=== PATIENT | male | born 1995 | race Caucasian/White ===

== ENCOUNTER 2018-01-02 14:54 | Emergency (ER) | payer SELFPAY ==
--- NOTE | 2018-01-02 14:58 | PDOC ---
Rapid Medical Evaluation Time Seen by Provider: 01/02/18 14:55 Medical Evaluation: 01/02/18 14:55 I have performed a brief in-person evaluation of this patient. The patient presents with a chief complaint of: left shoulder pain after fall down stairs one month ago. Pertinent physical exam findings:FROM with pain , nv intact I have ordered the following:xray left shoulder, clavicle The patient will proceed to the ED for further evaluation.
[2018-01-02 14:59] VITALS: BP 117/71; PULSE 73; TEMP 98.7; BMI 22.1
--- NOTE | 2018-01-02 15:32 | PDOC ---
History of Present Illness - General Chief Complaint: Injury Stated Complaint: LT SHOULDER PAIN Time Seen by Provider: 01/02/18 14:55 - History of Present Illness Initial Comments: 01/02/18 15:29 22-year-old fully immunized male without comorbidities presents for evaluation of one month of left shoulder pain. He states he fell down some steps landing on the back of the shoulder about a month ago since that time is been having pain at the posterior aspect of the left shoulder. He has no systemic symptoms. Past History - Past Medical History Allergies/Adverse Reactions: Allergies Allergy/AdvReac Type Severity Reaction Status Date / Time No Known Allergies Allergy Verified 01/02/18 14:59 Home Medications: Ambulatory Orders NK [No Known Home Medication] 01/02/18 COPD: No DVT: No Dementia: No - Suicide/Smoking/Psychosocial Hx Smoking History: Never smoked Information on smoking cessation initiated: No Hx Alcohol Use: No Drug/Substance Use Hx: No Substance Use Type: None Review of Systems - Review of Systems Musculoskeletal: Yes: See HPI, Joint Pain All Other Systems: Reviewed and Negative *Physical Exam - Vital Signs Last Vital Signs Temp Pulse Resp BP Pulse Ox 98.7 F 73 18 117/71 100 01/02/18 14:57 01/02/18 14:57 01/02/18 14:57 01/02/18 14:57 01/02/18 14:57 - Physical Exam Comments: Left shoulder skin color and temperature are normal. He has decreased active range of motion no pain with passive range of motion external and internal rotation. He is unable to tolerate rotator cuff strength testing or impingement maneuvers. His upper extremity compartments are soft and nontender he has no gross sensorimotor deficits. Negative Spurling maneuver. He has tenderness about the posterior aspect of the shoulder into the soft tissue in the subacromial area 01/02/18 15:29 Medical Decision Making - Medical Decision Making X-ray show speckle soft tissue calcifications in the left shoulder. I am uncertain of the etiology. I will have her follow-up with orthopedic surgery 01/02/18 15:30 *DC/Admit/Observation/Transfer Diagnosis at time of Disposition: Shoulder contusion - Discharge Dispostion Disposition: HOME Condition at time of disposition: Stable Decision to Admit order: No - Referrals Referrals: Malik Noonan MD [Staff Physician] - - Patient Instructions Printed Discharge Instructions: Contusion Additional Instructions: Return to the emergency room should symptoms worsen or go unresolved. Your x- rays not normal and requires further imaging studies such as an MRI or possibly a CAT scan. Please follow-up with orthopedic surgery for further evaluation and treatment options. It's very important that he follow-up with orthopedic surgery in 1-2 days. He may take Tylenol and Motrin as directed for pain. - Post Discharge Activity
== END 2018-01-02 15:44 | disposition home or self-care (01) ==
LOC: JERFT 14:54
DX: S40.012A Contusion of left shoulder, initial encounter (principal); W10.9XXA Fall (on) (from) unspecified stairs and steps, initial encounter; Y93.89 Activity, other specified; Y92.9 Unspecified place or not applicable
CPT/HCPCS: 73000-TC-LT-FY; 73030-TC-LT-FY; 99281-25

== ENCOUNTER 2018-03-06 13:55 | Emergency (ER) | payer OTHER ==
[2018-03-06 14:17] VITALS: BP 117/70; PULSE 59; TEMP 98.7; BMI 21.7
--- NOTE | 2018-03-06 14:17 | PDOC ---
Rapid Medical Evaluation Chief Complaint: Pain Time Seen by Provider: 03/06/18 14:14 Medical Evaluation: Allergies Allergy/AdvReac Type Severity Reaction Status Date / Time No Known Allergies Allergy Verified 01/02/18 14:59 03/06/18 14:15 I have performed a brief in-person evaluation of this patient. The patient presents with a CC of: left shoulder pain HPI: Pt is a 22 YO male who states he has had left shoulder pain x 4-5 months. Denies injury or trauma. Pain 6/10 Pertinent PE: Skin: Clear Lungs: Clear Heart: RRR MS. Moves all extremities. Full ROM of left shoulder Neuro: Alert Psych: Age appropriate. I have ordered the following: left shoulder x ray The patient will proceed to [facility] for further evaluation. Discharge Disposition - Diagnosis Shoulder sprain Qualifiers: Encounter type: initial encounter Laterality: left - Referrals - Patient Instructions - Post Discharge Activity
--- NOTE | 2018-03-06 15:02 | PDOC ---
History of Present Illness - General Chief Complaint: Pain Stated Complaint: shoulder pain Time Seen by Provider: 03/06/18 14:14 - History of Present Illness Initial Comments: 03/06/18 14:59 22-year-old male without comorbidities presents for atraumatic onset of left shoulder pain 5 months. He was evaluated a month or so ago by myself he never followed up with orthopedic surgery as suggested Past History - Past Medical History Allergies/Adverse Reactions: Allergies Allergy/AdvReac Type Severity Reaction Status Date / Time No Known Allergies Allergy Verified 03/06/18 14:14 Home Medications: Ambulatory Orders NK [No Known Home Medication] 01/02/18 COPD: No DVT: No Dementia: No Other medical history: DENIES. - Suicide/Smoking/Psychosocial Hx Smoking History: Never smoked Hx Alcohol Use: No Drug/Substance Use Hx: No Substance Use Type: None Review of Systems - Review of Systems Musculoskeletal: Yes: Joint Pain *Physical Exam - Vital Signs Last Vital Signs Temp Pulse Resp BP Pulse Ox 98.7 F 59 L 19 117/70 99 03/06/18 14:15 03/06/18 14:15 03/06/18 14:15 03/06/18 14:15 03/06/18 14:15 - Physical Exam Comments: 03/06/18 15:00 Left shoulder skin color and temperature are normal range of motion is limited and neck sternal rotation and abduction he hikes his shoulder as he rotates. Unable to tolerate impingement maneuvers are super spinatus isolation he has no gross sensorimotor deficits she's neurovascularly intact. Moderate Sedation - Procedure Monitoring Vital Signs: Procedure Monitoring Vital Signs Temperature 98.7 F 03/06/18 14:15 Pulse Rate 59 L 03/06/18 14:15 Respiratory Rate 19 03/06/18 14:15 Blood Pressure 117/70 03/06/18 14:15 O2 Sat by Pulse Oximetry (%) 99 03/06/18 14:15 Medical Decision Making - Medical Decision Making 03/06/18 15:00 Location on radiograph today unchanged from last visit orthopedic follow-up is essential *DC/Admit/Observation/Transfer Diagnosis at time of Disposition: Adhesive bursitis of left shoulder Diagnosis at time of Disposition: (Ruled Out): Shoulder sprain - Discharge Dispostion Disposition: HOME Condition at time of disposition: Stable Decision to Admit order: No - Referrals Referrals: Malik Noonan MD [Staff Physician] - - Patient Instructions Printed Discharge Instructions: Frozen Shoulder, DI for Frozen Shoulder Additional Instructions: Tylenol Motrin as directed for pain it's very important that he follow-up with orthopedic surgery for further evaluation and treatment options we cannot do anything few for this pain in the emergency room however you may return to the emergency room at any time - Post Discharge Activity
== END 2018-03-06 15:04 | disposition home or self-care (01) ==
LOC: JERFT 13:55
DX: M75.02 Adhesive capsulitis of left shoulder (principal)
CPT/HCPCS: 73030-TC-LT-FY; 99281-25